=== PATIENT | male | born 1980 | race Caucasian/White ===

== ENCOUNTER 2018-04-14 17:20 | Emergency (ER) | payer MEDICAID ==
[~2018-04-14] VITALS: Ht 185.4 cm; Wt 72.6 kg
[2018-04-14 17:50] LABS: BASOPHILS % (AUTO) 0.6 % (0.0-2.0); EOSINOPHILS # (AUTO) 0.2 K/uL (0.0-0.7); EOSINOPHILS % (AUTO) 2.7 % (0.0-7.0); HEMATOCRIT 45.3 % (36.7-47.1); HEMOGLOBIN 15.6 g/dL (12.5-16.3); LYMPHOCYTES # (AUTO) 2.4 K/uL (20.0-40.0); LYMPHOCYTES % (AUTO) 31.1 % (20.5-51.5); MEAN CORPUSCULAR HEMOGLOBIN 31.5 uug (23.8-33.4); MEAN CORPUSCULAR HGB CONC 35 g/dL (32.5-36.3); MEAN CORPUSCULAR VOLUME 91.2 fL (73.0-96.2); MONOCYTES # (AUTO) 0.5 K/uL (2.0-10.0); MONOCYTES % (AUTO) 6.1 % (0.0-11.0); NEUTROPHILS # (AUTO) 4.5 K/uL (1.8-8.9); NEUTROPHILS % (AUTO) 59.5 % (38.5-71.5); PLATELET COUNT (AUTO) 216 K/uL (152-348); RED BLOOD CELL COUNT(AUTO) 4.96 MIL/uL (4.06-5.63); WHITE BLOOD COUNT (AUTO) 7.6 K/uL (3.6-10.2)
[2018-04-14 17:54] LABS: CREATININE 0.8 mg/dL (0.6-1.3); POTASSIUM 3.7 mmol/L (3.5-5.1)
--- NOTE | 2018-04-14 18:42 | NUR ---
Patient discharged to home in stable conditon. Written and verbal after care instructions given. Patient verbalizes understanding of instructions.PT WALKS IN STEADY GAIT. PT SAYS FEELS BETTER.
[2018-04-14] MEDS ORDERED: BP MEDICINE (18:44)
== END 2018-04-14 18:45 | disposition home or self-care (01) ==
LOC: ER 17:20
DX: R07.89 Other chest pain (principal); R10.13 Epigastric pain; R06.02 Shortness of breath
CPT/HCPCS: 36415; 70030-TC; 71045; 85025; 93005; A4663

== ENCOUNTER 2022-03-27 18:03 | Emergency (ER) | payer BC, MEDICAID ==
[~2022-03-27] VITALS: Ht 185.4 cm; Wt 96.2 kg
[~2022-03-27 18:03] MED LIST: BP MEDICINE
--- NOTE | 2022-03-27 19:02 | NUR ---
PT IS IN ROOM #2A. DR FARFAN EVALUATED THE PT.
--- NOTE | 2022-03-27 19:20 | NUR ---
Received report from SILVIANO Gonsalves.
[2022-03-27] MEDS ORDERED: AZIT250T13 PO (19:33)
[2022-03-27] MEDS ORDERED: BENZ-13 PO (19:33)
--- NOTE | 2022-03-27 20:02 | NUR ---
Patient discharged to home in stable condition. A/O x 4. NAD noted. Ambulatory with a steady gait. All belongings with pt. Written and verbal after care instructions given. Patient verbalizes understanding of instructions. Stressed follow up or return to ER for worsening s/s.
== END 2022-03-27 20:05 | disposition home or self-care (01) ==
LOC: ER 18:03
DX: R05.9 Cough, unspecified (principal); J18.9 Pneumonia, unspecified organism; Z20.822 Contact with and (suspected) exposure to COVID-19; K21.9 Gastro-esophageal reflux disease without esophagitis; I10 Essential (primary) hypertension
CPT/HCPCS: 71045; A4663